=== PATIENT | male | born 1990 | race Caucasian/White ===

== ENCOUNTER 2017-04-29 21:02 | Emergency (ER) | payer SELFPAY ==
[~2017-04-29] VITALS: Ht 167.6 cm; Wt 90.0 kg
[~2017-04-29 21:02] MED LIST: NOCURR
[2017-04-29] MEDS ORDERED: AZITHROMYCIN 250 MG TABLET PO ONE (23:45)
[2017-04-29] MEDS ORDERED: CefTRIAXone SODIUM 1 GM/VIAL IM ONE (23:45)
[2017-04-29] MEDS ORDERED: LIDOCAINE HCL/PF 1% 2 ML VIAL IM ONE (23:45)
[2017-04-29] MEDS ORDERED: IBUPROFEN 600 MG TABLET PO ONE (23:45)
[2017-04-29 23:53] VITALS: BP 137/86
== END 2017-04-29 23:55 | disposition home or self-care (01) ==
LOC: EMS 21:05
DX: N50.82 Scrotal pain (principal); I10 Essential (primary) hypertension; Z90.49 Acquired absence of other specified parts of digestive tract; Z79.1 Long term (current) use of non-steroidal anti-inflammatories (NSAID); Z79.899 Other long term (current) drug therapy
CPT/HCPCS: 96372; 99283; J0696; J3490

== ENCOUNTER 2018-08-23 13:35 | Emergency (ER) | payer SELFPAY ==
[~2018-08-23] VITALS: Ht 167.6 cm; Wt 86.4 kg
[2018-08-23 13:59] VITALS: BP 134/70
[2018-08-23 15:05] LABS: BASOPHILS % (AUTO) 0.1 % (0.0-2.0); EOSINOPHILS % (AUTO) 0.3 % (1.0-6.0); HEMATOCRIT 46.4 % (41-53); HEMOGLOBIN 16.1 g/dL (13.5-17.5); LYMPHOCYTES # (AUTO) 1.7 K/uL (1.0-4.8); LYMPHOCYTES % (AUTO) 11.9 % (22.0-44.0); MEAN CORPUSCULAR HEMOGLOBIN 31.8 pg (26.0-34.0); MEAN CORPUSCULAR HGB CONC 34.8 G/dL (31.0-37.0); MEAN CORPUSCULAR VOLUME 92 fL (80-100); MONOCYTES # (AUTO) 0.8 K/uL (0.1-1.0); MONOCYTES % (AUTO) 5.6 % (2.0-9.0); NEUTROPHILS # (AUTO) 11.7 K/uL (1.8-7.7); NEUTROPHILS % (AUTO) 82.1 % (40.0-70.0); PLATELET COUNT (AUTO) 174 K/uL (150-450); RED BLOOD CELL COUNT(AUTO) 5.07 MIL/uL (4.50-5.90)
[2018-08-23] MEDS ORDERED: DICYCLOMINE HCL 20 MG TABLET PO ONE (15:15)
[2018-08-23 15:23] LABS: ANION GAP 5 mmol/L (8-16); CALCIUM, TOTAL 9.3 mg/dL (8.8-10.5); CARBON DIOXIDE 30 mmol/L (22-29); CHLORIDE 101 mmol/L (98-107); CREATININE 1.19 mg/dL (0.60-1.30); GLOMERULAR FILTR. RATE CALC > 60 mL/min (>60); GLUCOSE,RANDOM 97 mg/dL (70-110); POTASSIUM 3.9 mmol/L (3.5-5.1); SODIUM SERUM 136 mmol/L (136-145); UREA NITROGEN, BLOOD 17 mg/dL (7-18)
[2018-08-23 15:28] LABS: ALANINE AMINOTRANSFERASE 55 U/L (12-78); ALBUMIN 4.1 g/dL (3.4-5.0); ALKALINE PHOSPHATASE 72 U/L (46-116); ASPARTATE AMINOTRANSFERASE 27 U/L (15-37); BILIRUBIN,TOTAL 0.4 mg/dL (0.1-1.0); LIPASE 184 U/L (73-393); TOTAL PROTEIN, SERUM 8.7 g/dL (6.4-8.2)
[2018-08-23] MEDS ORDERED: IOVERSOL 320 MG/ML 100 ML VIAL ONE (17:26)
[2018-08-23] MEDS ORDERED: SODIUM CHLORIDE 0.9% 100 ML ONE (17:26)
[2018-08-23 18:06] LABS: AMPHET/METH SCREEN,URINE NEGATIVE (NEGATIVE); BARBITURATE SCREEN, URINE NEGATIVE (NEGATIVE); BENZODIAZEPINES SCREEN,URINE NEGATIVE (NEGATIVE); CANNABINOID SCREEN,URINE NEGATIVE (NEGATIVE); COCAINE SCREEN,URINE NEGATIVE (NEGATIVE); METHADONE SCREEN, URINE NEGATIVE (NEGATIVE); OPIATE SCREEN,URINE NEGATIVE (NEGATIVE); PHENCYCLIDINE SCREEN,URINE NEGATIVE (NEGATIVE)
[2018-08-23 18:11] LABS: APPEARANCE,URINE CLEAR (CLEAR); BILIRUBIN,URINE NEGATIVE (NEGATIVE); GLUCOSE, URINE (UA) NEGATIVE (NEGATIVE); KETONES,URINE NEGATIVE (NEGATIVE); LEUKOCYTE ESTERASE ,URINE NEGATIVE (NEGATIVE); NITRATE,URINE NEGATIVE (NEGATIVE); OCCULT BLOOD,URINE NEGATIVE (NEGATIVE); PH,URINE 5.5 (5.0-8.0); PROTEIN,URINE NEGATIVE (NEGATIVE)
[2018-08-23 18:43] LABS: BACTERIA,URINE None Seen /HPF (None Seen); RBC,URINE None Seen /HPF (0-2); SQUAMOUS EPITHELIAL CELL,UR Rare /LPF (None Seen); WBC,URINE 0-2 /HPF (0-5)
== END 2018-08-23 19:07 | disposition home or self-care (01) ==
LOC: EMS 13:36
DX: K50.00 Crohn's disease of small intestine without complications (principal); R16.1 Splenomegaly, not elsewhere classified
CPT/HCPCS: 36415; 74177; 80053; 80307; 81001; 83690; 85025; 99285; G0480; J7050; Q9967

== ENCOUNTER 2018-09-25 09:30 | Emergency (ER) | payer MEDICAID | END 2018-09-25 10:37 | disposition left against medical advice (07) | LOC: EMS 09:34 | DX: R10.9 Unspecified abdominal pain (principal); Z53.21 Procedure and treatment not carried out due to patient leaving prior to being seen by health care provider ==